=== PATIENT | male | born 1970 | race Caucasian/White ===

== ENCOUNTER 2017-09-21 12:04 | Emergency (ER) | payer OTHER ==
[~2017-09-21] VITALS: Ht 185.4 cm; Wt 108.9 kg
[2017-09-21 14:16] VITALS: BP 135/99
== END 2017-09-21 14:16 | disposition home or self-care (01) ==
LOC: M.ERS 12:04
DX: T15.02XA Foreign body in cornea, left eye, initial encounter (principal); F10.99 Alcohol use, unspecified with unspecified alcohol-induced disorder; W45.8XXA Other foreign body or object entering through skin, initial encounter; Y93.89 Activity, other specified; Y92.89 Other specified places as the place of occurrence of the external cause; Y99.8 Other external cause status